=== PATIENT | male | born 1990 | race Caucasian/White ===

== ENCOUNTER 2021-10-11 17:13 | Observation (INO) ==
[2021-10-11] MEDS ORDERED: ceFAZolin 1,000 MG in Water for inj. (sterile) 10 ML IVP ONE (18:58)
[2021-10-11] MEDS ORDERED: Vancomycin 2,000 MG/520 ML IV.SOLN IVPB ONE (18:58)
[2021-10-11] MEDS ORDERED: Ketorolac 30 MG/ML VIAL IVP ONE (19:54)
[2021-10-11 19:59] LABS: Basophils # 0.1 K/mcL (0.0-0.2); Basophils % 0.5 %; Eosinophils # 0.1 K/mcL (0.0-0.6); Eosinophils % 0.8 %; Hematocrit 49.1 % (37.5-50.1); Hemoglobin 16.6 g/dL (12.9-16.9); Immature Granulocytes % 0.5 % (0-4); Lymphocytes # 1.9 K/mcL (0.6-4.6); Lymphocytes % 14.2 %; Mean Corpuscular HGB Conc 33.8 g/dL (31.6-35.5); Mean Corpuscular Volume 91.8 fL (83.0-100.0); Mean Platelet Volume 10.9 fL (9.4-12.4); Monocytes % 7.2 %; Neutrophils # 10.2 K/mcL (1.6-8.9); Platelet Count 222 K/mcL (140-400); Red Blood Count 5.35 M/mcL (4.19-5.50); Red Cell Distribution Width 13.1 % (11.5-14.5); Segmented Neutrophils % 76.8 %; White Blood Count 13.2 K/mcL (4.3-11.1)
[2021-10-11 20:19] LABS: Alanine Aminotransferase 70 Units/L (7-52); Albumin 4.4 g/dL (3.5-5.7); Albumin/Globulin Ratio 1.5 (1.1-2.2); Alkaline Phosphatase 100 Units/L (34-104); Aspartate Amino Transferase 38 Units/L (13-39); BUN/Creatinine Ratio 16 (6-26); Bilirubin,Total 1.3 mg/dL (0.3-1.0); Blood Urea Nitrogen 16 mg/dL (6-20); C-Reactive Protein 53 mg/L (Less than 10); Calcium 9.3 mg/dL (8.6-10.3); Carbon Dioxide 28 mEq/L (23-29); Chloride 104 mEq/L (98-107); Globulin 2.9 g/dL (2.4-3.5); Glucose 95 mg/dL (70-105); Osmolality,Calculated 289 (280-300); Potassium 3.8 mEq/L (3.5-5.1); Sodium 139 mEq/L (136-145); Total Protein 7.3 g/dL (6.4-8.9); eGFR For African Americans > 60 (> 60); eGFR For Non-African Americans > 60 (> 60)
[2021-10-11] MEDS ORDERED: *HR* FentaNYL (PF) 100 MCG/2 ML VIAL IVP ONE (20:30)
[2021-10-11] MEDS ORDERED: 0.9 % Sodium Chloride 1,000 ML IV ONE (20:30)
[2021-10-11] MEDS ORDERED: Nicotine 21 MG PATCH.TD24 TD SCH (21:00)
[2021-10-11] MEDS ORDERED: Naloxone 0.4 MG/ML INJ IVP PRN (21:12)
[2021-10-11] MEDS ORDERED: Ondansetron ODT 4 MG TAB.RAPDIS SL PRN (21:12)
[2021-10-11 21:25] LABS: Uric Acid 4.5 mg/dL (2.3-7.6)
[2021-10-11] MEDS ORDERED: *HR* OxyCODONE Immed Rel 5 MG TABLET PO PRN (21:59)
[2021-10-12 01:12] LABS: Hematocrit 42.4 % (37.5-50.1); Mean Corpuscular HGB Conc 33.5 g/dL (31.6-35.5); Mean Corpuscular Hemoglobin 30.7 pg (28.0-33.3); Mean Corpuscular Volume 91.8 fL (83.0-100.0); Mean Platelet Volume 11.4 fL (9.4-12.4); Platelet Count 199 K/mcL (140-400); Red Blood Count 4.62 M/mcL (4.19-5.50); White Blood Count 11.3 K/mcL (4.3-11.1)
[2021-10-12 01:17] LABS: Hemoglobin 14.2 g/dL (12.9-16.9)
[2021-10-12 01:34] LABS: Alanine Aminotransferase 54 Units/L (7-52); Albumin 3.5 g/dL (3.5-5.7); Albumin/Globulin Ratio 1.5 (1.1-2.2); Alkaline Phosphatase 80 Units/L (34-104); Aspartate Amino Transferase 31 Units/L (13-39); BUN/Creatinine Ratio 19 (6-26); Bilirubin,Total 1.1 mg/dL (0.3-1.0); Blood Urea Nitrogen 17 mg/dL (6-20); Calcium 8.3 mg/dL (8.6-10.3); Carbon Dioxide 25 mEq/L (23-29); Chloride 106 mEq/L (98-107); Globulin 2.4 g/dL (2.4-3.5); Glucose 114 mg/dL (70-105); Magnesium 1.5 mg/dL (1.6-2.6); Osmolality,Calculated 290 (280-300); Phosphorous 3.1 mg/dL (2.7-4.5); Potassium 3.4 mEq/L (3.5-5.1); Sodium 139 mEq/L (136-145); Total Protein 5.9 g/dL (6.4-8.9); eGFR For African Americans > 60 (> 60); eGFR For Non-African Americans > 60 (> 60)
[2021-10-12] MEDS: Cefepime HCl 2,000 MG in 0.9 % Sodium Chloride 10 ML IVP SCH ×3 (01:44→17:01)
[2021-10-12] MEDS: *HR* Heparin 5,000 UNIT/ML VIAL SQ SCH ×2 (06:03→17:03)
[2021-10-12] MEDS: *HR* OxyCODONE Immed Rel 5 MG TABLET PO PRN ×3 (07:50→21:27)
[2021-10-12] MEDS ORDERED: Vancomycin 2,000 MG/520 ML IV.SOLN IVPB ONE (08:20)
[2021-10-12] MEDS: Magnesium Oxide 400 MG TABLET PO SCH (21:27)
[2021-10-12] MEDS: Melatonin 3 MG TABLET PO PRN (21:27)
[2021-10-12] MEDS: Vancomycin 2,000 MG/520 ML IV.SOLN IVPB SCH (21:29)
[2021-10-12] MEDS: Nicotine 21 MG PATCH.TD24 TD SCH (21:29)
[2021-10-13 01:39] LABS: Basophils # 0.1 K/mcL (0.0-0.2); Basophils % 0.7 %; Eosinophils # 0.2 K/mcL (0.0-0.6); Eosinophils % 2.5 %; Hematocrit 42.8 % (37.5-50.1); Hemoglobin 14.1 g/dL (12.9-16.9); Immature Granulocytes % 0.9 % (0-4); Lymphocytes # 1.7 K/mcL (0.6-4.6); Lymphocytes % 19.7 %; Mean Corpuscular HGB Conc 32.9 g/dL (31.6-35.5); Mean Corpuscular Hemoglobin 30.5 pg (28.0-33.3); Mean Corpuscular Volume 92.6 fL (83.0-100.0); Mean Platelet Volume 11.4 fL (9.4-12.4); Monocytes # 0.6 K/mcL (0.0-1.3); Monocytes % 7.3 %; Platelet Count 203 K/mcL (140-400); Red Blood Count 4.62 M/mcL (4.19-5.50); Red Cell Distribution Width 12.9 % (11.5-14.5); Segmented Neutrophils % 68.9 %; White Blood Count 8.8 K/mcL (4.3-11.1)
[2021-10-13 01:49] LABS: BUN/Creatinine Ratio 18 (6-26); Blood Urea Nitrogen 15 mg/dL (6-20); Calcium 8.4 mg/dL (8.6-10.3); Carbon Dioxide 26 mEq/L (23-29); Chloride 103 mEq/L (98-107); Glucose 110 mg/dL (70-105); Magnesium 1.7 mg/dL (1.6-2.6); Osmolality,Calculated 281 (280-300); Phosphorous 3.6 mg/dL (2.7-4.5); Potassium 4.3 mEq/L (3.5-5.1); Sodium 135 mEq/L (136-145); eGFR For African Americans > 60 (> 60); eGFR For Non-African Americans > 60 (> 60)
[2021-10-13] MEDS: Cefepime HCl 2,000 MG in 0.9 % Sodium Chloride 10 ML IVP SCH ×3 (02:25→16:49)
[2021-10-13] MEDS: *HR* OxyCODONE Immed Rel 5 MG TABLET PO PRN ×3 (06:01→21:44)
[2021-10-13] MEDS: *HR* Heparin 5,000 UNIT/ML VIAL SQ SCH ×2 (06:02→16:48)
[2021-10-13] MEDS: Magnesium Oxide 400 MG TABLET PO SCH ×2 (07:39→21:44)
[2021-10-13] MEDS: Vancomycin 2,000 MG/520 ML IV.SOLN IVPB SCH (07:45)
[2021-10-13] MEDS: Ketorolac 30 MG/ML VIAL IVP SCH ×2 (11:40→18:28)
[2021-10-13] MEDS: Nicotine 21 MG PATCH.TD24 TD SCH (21:45)
[2021-10-14] MEDS: Cefepime HCl 2,000 MG in 0.9 % Sodium Chloride 10 ML IVP SCH ×2 (00:37→07:56)
[2021-10-14] MEDS: Ketorolac 30 MG/ML VIAL IVP SCH ×2 (00:38→06:04)
[2021-10-14 00:42] LABS: Hemoglobin 14.5 g/dL (12.9-16.9); Mean Corpuscular HGB Conc 33.7 g/dL (31.6-35.5); Mean Corpuscular Hemoglobin 30.8 pg (28.0-33.3); Mean Corpuscular Volume 91.3 fL (83.0-100.0); Mean Platelet Volume 11.1 fL (9.4-12.4); Platelet Count 212 K/mcL (140-400); Red Blood Count 4.71 M/mcL (4.19-5.50); Red Cell Distribution Width 12.5 % (11.5-14.5); White Blood Count 7.5 K/mcL (4.3-11.1)
[2021-10-14] MEDS: Melatonin 3 MG TABLET PO PRN (00:47)
[2021-10-14 01:03] LABS: BUN/Creatinine Ratio 23 (6-26); Blood Urea Nitrogen 19 mg/dL (6-20); Calcium 8.8 mg/dL (8.6-10.3); Carbon Dioxide 26 mEq/L (23-29); Chloride 103 mEq/L (98-107); Glucose 113 mg/dL (70-105); Magnesium 1.8 mg/dL (1.6-2.6); Osmolality,Calculated 289 (280-300); Phosphorous 3.7 mg/dL (2.7-4.5); Potassium 4.2 mEq/L (3.5-5.1); Sodium 138 mEq/L (136-145); eGFR For African Americans > 60 (> 60); eGFR For Non-African Americans > 60 (> 60)
[2021-10-14] MEDS: *HR* Heparin 5,000 UNIT/ML VIAL SQ SCH (06:04)
[2021-10-14 07:46] VITALS: BP 124/80; PULSE 72; TEMP 98.2; O2SAT 97
[2021-10-14] MEDS: Magnesium Oxide 400 MG TABLET PO SCH (07:55)
== END 2021-10-14 09:44 | disposition home or self-care (01) ==
LOC: EMEROOARM 17:13 → 3BNU 17:13 → SUATTDRO 21:48 → 3BNU 22:20
PROVIDERS: ADMIT Internal Medicine; ATTEND Internal Medicine